=== PATIENT | female | born 1945 | race Caucasian/White ===

== ENCOUNTER 2016-12-29 09:00 | Outpatient (RCR) | payer MEDICARE, OTHER ==
[~2016-12-29 09:00] MED LIST: ASPIR-LOW81 MG PO; CIPROFLOXACIN500 M2 ORAL; CLOTRIMAZOLE15 GM TOPIC; FISH OIL 1,0001 EAC1 ORAL; FLEET ENEMA133 ML RC; IBUPROFEN600 M1 PO; LEVOFLOXACIN750 MG ORAL; METRONIDAZOLE250 MG ORAL; METRONIDAZOLE500 MG ORAL; MILK OF MA400 MG/51 ORAL; NEOMYCIN-POLY-7.5 M1 OP; NEXIUM40 M2 ORAL; NEXIUM40 MG ORAL; NORCO 5-325 TA1 EACH ORAL; NORCO 5-325 TA1 EACH PO; NORVASC5 MG ORAL; OSCAL D500 MG PO; OYSCO 500+D TA1 EAC1 PO; PROBIOTIC1 EAC6 PO; ROBAXIN500 MG PO; SOMA350 MG PO; SYNTHROID50 MCG PO; TRAMADOL HCL50 MG ORAL; ZYRTEC10 MG ORAL; [UNRECOGNIZED DRUG - MIXTURE] PO
== END 2017-01-25 | disposition home or self-care (01) ==
LOC: PTY 09:00
DX: M54.5 Low back pain (principal); M48.06 Spinal stenosis, lumbar region; S83.231D Complex tear of medial meniscus, current injury, right knee, subsequent encounter; I10 Essential (primary) hypertension; E78.00 Pure hypercholesterolemia, unspecified; E03.9 Hypothyroidism, unspecified; E66.9 Obesity, unspecified; F32.9 Major depressive disorder, single episode, unspecified; M19.90 Unspecified osteoarthritis, unspecified site; N28.9 Disorder of kidney and ureter, unspecified; Z90.5 Acquired absence of kidney
CPT/HCPCS: 97110; 97140; 97161; G0283; G8978; G8979

== ENCOUNTER 2017-01-27 08:00 | Outpatient (RCR) | payer MEDICARE, OTHER ==
[2017-01-30] MEDS ORDERED: TRAMADOL HCL50 MG ORAL (11:30)
== END 2017-02-24 | disposition home or self-care (01) ==
LOC: PTY 08:00
DX: M48.06 Spinal stenosis, lumbar region (principal); M54.5 Low back pain; S83.231D Complex tear of medial meniscus, current injury, right knee, subsequent encounter; I10 Essential (primary) hypertension; E78.00 Pure hypercholesterolemia, unspecified; E03.9 Hypothyroidism, unspecified; E66.9 Obesity, unspecified; F32.9 Major depressive disorder, single episode, unspecified; M19.90 Unspecified osteoarthritis, unspecified site; N28.9 Disorder of kidney and ureter, unspecified; Z90.5 Acquired absence of kidney
CPT/HCPCS: 97110; 97140; G0283; G8979; G8980

== ENCOUNTER 2017-01-30 07:51 | Emergency (ER) | payer MEDICARE, OTHER ==
[~2017-01-30] VITALS: Ht 160 cm; Wt 75.3 kg
[2017-01-30] MEDS ORDERED: Tylenol #3 tab (300mg/30mg) ORAL ONE (08:30)
--- NOTE | 2017-01-30 11:23 | Diagnostic Imaging Report ---
Indication: Pain Comparison: None Findings: 4 view right rib series performed. Bones are osteopenic in keeping with age. There is no fracture identified. The right lung appears clear. There is no pneumothorax. No effusion seen. Surgical clips noted in the upper abdomen. Impression: Negative right rib series.
[2017-01-30] MEDS ORDERED: TRAMADOL HCL50 MG ORAL (11:30)
[2017-01-30 11:35] VITALS: BP 138/79
--- NOTE | 2017-01-30 12:34 | Emergency Room Report ---
History of Present Illness General Chief Complaint: Back Pain-No Injury Source: Patient Present Illness HPI 71-year-old female presents to ED stating of right-sided rib pain and upper back pain. States that approximately 3 weeks ago she had a mechanical trip and fall. Persistent pain to the right side of her ribs and upper back since. Pain is sharp, 9/10, nonradiating. Denies chest pain or shortness of breath. Denies any lower back pain. Denies any other injuries. No other aggravating or leading factors. Denies any other associated symptoms Allergies: Coded Allergies: PINEAPPLE (Verified Allergy, Mild, Itching, 08/29/14) taken from the patient Patient History Past Medical History: HTN Past Surgical History: none Pertinent Family History: none Social History: Denies: alcohol use, drug use, smoking Last Menstrual Period: na Now: No Immunizations: UTD Reviewed Nursing Documentation: PMH: Agreed, PSxH: Agreed Nursing Documentation-PMH Past Medical History: No History, Except For Hx Cardiac Problems: Yes Hx Hypertension: Yes Hx Pacemaker: No - HYPOTHYROIDSM Hx Cancer: Yes - no rt kidney Hx Gastrointestinal Problems: Yes Hx Neurological Problems: No Review of Systems All Other Systems: negative except mentioned in HPI Physical Exam Vital Signs Date Time Temp Pulse Resp B/P Pulse Ox O2 Delivery O2 Flow Rate FiO2 01/30/17 08:03 97.5 68 18 138/79 98 Room Air Sp02 EP Interpretation: reviewed, normal General Appearance: no apparent distress, alert, GCS 15, non-toxic Head: normocephalic Eyes: bilateral eye PERRL, bilateral eye normal inspection ENT: normal ENT inspection Neck: normal inspection Respiratory: lungs clear, normal breath sounds, speaking full sentences, other - R sided reproducible rib pain Cardiovascular #1: regular rate, rhythm, no edema Gastrointestinal: normal bowel sounds, non tender, soft, non-distended, no guarding, no rebound Rectal: deferred Genitourinary: no CVA tenderness Musculoskeletal: normal inspection Neurologic: alert, oriented x3, responsive, motor strength/tone normal, sensory intact, speech normal Psychiatric: normal inspection Skin: normal inspection Lymphatic: normal inspection Medical Decision Making Diagnostic Impression: Primary Impression: Contusion of rib Qualified Codes: S20.211A - Contusion of right front wall of thorax, initial encounter Additional Impression: Muscle strain ER Course Hospital Course 71-year-old M presents to ED complaining of R Rib pain s/p fall Differential diagnoses include: Fracture, dislocation, sprain, contusion Clinical course Patient placed on stretcher. After initial history and physical, I ordered pain medications and Xrays of chest, R rib series Xrays read shows no acute fracture/dislocation. no PTX On reassessment pain is improved Diagnosis - rib contusion, muscle strain Stable and discharged to home with prescription for tramadol. apply ice. Followup with PMD. Return to ED if symptoms recur or worsen Chest X-Ray Diagnostic Results EP Interpretation: No Findings: no consolidation, no effusion, no pneumothorax, no acute cardiopulmonary disease Number of Views: 1 Other X-Ray Diagnostic Results Other X-Ray Diagnostic Results : X-Ray Ordered: R rib series EP Interpretation: No Findings: no fractures, no dislocation, no soft tissue swelling, other - surgical clips Number of Views: 3 Last Vital Signs Date Time Temp Pulse Resp B/P Pulse Ox O2 Delivery O2 Flow Rate FiO2 01/30/17 11:35 97.6 18 138/79 98 Room Air 01/30/17 08:03 68 Status: improved Disposition: HOME, SELF-CARE Condition: Stable Scripts Tramadol Hcl* (ULTRAM*) 50 Mg Tablet 50 MG ORAL Q6H Y for For Pain, #30 TAB 0 Refills Prov: ANGELITA MONTENEGRO M.D. 01/30/17 Patient Instructions: Back Pain, Adult ANGELITA MONTENEGRO M.D. Jan 30, 2017 12:34
== END 2017-01-30 11:35 | disposition home or self-care (01) ==
LOC: EMR 08:33
DX: S20.211A Contusion of right front wall of thorax, initial encounter (principal); T14.8 Other injury of unspecified body region; Z91.018 Allergy to other foods; I10 Essential (primary) hypertension; E03.9 Hypothyroidism, unspecified; W01.0XXA Fall on same level from slipping, tripping and stumbling without subsequent striking against object, initial encounter; Y92.9 Unspecified place or not applicable
CPT/HCPCS: 99284

== ENCOUNTER 2017-03-06 10:08 | Emergency (ER) | payer MEDICARE, OTHER ==
[~2017-03-06] VITALS: Ht 160 cm; Wt 87.1 kg
[2017-03-06 10:15] VITALS: BP 134/83
--- NOTE | 2017-03-06 10:20 | Emergency Room Report ---
History of Present Illness General Chief Complaint: Earache Source: Patient, Medical Record Present Illness HPI L ear pain several days. Redness. Pain with touch. Also pain behind ear. Has had before, but not this severe. No change hearing. No fevers. Concern over one kidney with meds. No NVD, dysuria, URI sy, sore throat, cough, CP. Allergies: Coded Allergies: PINEAPPLE (Verified Allergy, Mild, Itching, 08/29/14) taken from the patient Patient History Past Medical History: see triage record Pertinent Family History: other - R nephrectomy Social History: Denies: smoking Social History Narrative home Reviewed Nursing Documentation: PMH: Agreed, PSxH: Agreed Nursing Documentation-PMH Past Medical History: No History, Except For Hx Cardiac Problems: Yes Hx Hypertension: Yes Hx Pacemaker: No - HYPOTHYROIDSM Hx Cancer: Yes - Right kidney removal d/t CA Hx Gastrointestinal Problems: Yes Hx Neurological Problems: No Review of Systems All Other Systems: negative except mentioned in HPI Physical Exam Vital Signs Date Time Temp Pulse Resp B/P Pulse Ox O2 Delivery O2 Flow Rate FiO2 03/06/17 10:12 98.1 83 16 134/83 96 Room Air Sp02 EP Interpretation: reviewed, normal General Appearance: well appearing, no apparent distress Head: normocephalic, atraumatic Eyes: bilateral eye PERRL, bilateral eye normal inspection ENT: hearing grossly normal, normal voice, other - canal swollen L with erythema, TM normal - some mastoid tenderness Neck: full range of motion, supple Respiratory: no respiratory distress, speaking full sentences Musculoskeletal: no calf tenderness Neurologic: alert, normal gait Psychiatric: mood/affect normal Skin: no rash Medical Decision Making Diagnostic Impression: Primary Impression: Left otitis externa Qualified Codes: H60.312 - Diffuse otitis externa, left ear ER Course Pt presents with findings of otitis externa. Concern over 1 kidney. Exam remarkable and needing po antibiotics and analgesia. No sig co-morbidities and not toxic. Cipro and tylenol given. Improved. Patient stable for outpatient observation and treatment. Last Vital Signs Date Time Temp Pulse Resp B/P Pulse Ox O2 Delivery O2 Flow Rate FiO2 03/06/17 10:30 98.1 16 134/83 96 Room Air 03/06/17 10:12 83 Status: improved Disposition: HOME, SELF-CARE Condition: Improved Scripts Acetaminophen (Tylenol) 325 Mg Tablet 650 MG ORAL Q6H Y for Prn Pain/Headache/Temp > 101, #30 TAB 0 Refills Prov: Abdias Key M.D. 03/06/17 Tramadol Hcl* (ULTRAM*) 50 Mg Tablet 50 MG ORAL Q6H Y for For Pain, #10 TAB 0 Refills Prov: Abdias Key M.D. 03/06/17 Ciprofloxacin Hcl* (CIPROFLOXACIN HCL*) 500 Mg Tablet 500 MG ORAL Q12H, #14 TAB 0 Refills Prov: Abdias Key M.D. 03/06/17 Ciprofloxacin/Hydrocortisone (CIPRO HC OTIC SUSPENSION) 10 Ml Drops.susp 3 DROP OT Q6HR for 7 Days, ML Prov: Abdias Key M.D. 03/06/17 Abidas Key M.D. Mar 06, 2017 10:20
[2017-03-06] MEDS ORDERED: TRAMADOL HCL50 MG ORAL (10:25)
[2017-03-06] MEDS ORDERED: CIPRO HC OTIC S10 M1 OT (10:25)
[2017-03-06] MEDS ORDERED: TYLENOL325 MG ORAL (10:25)
[2017-03-06] MEDS ORDERED: CIPROFLOXACIN500 M2 ORAL (10:25)
[2017-03-06 10:30] VITALS: BP 134/83
[2017-03-06] MEDS ORDERED: Ciprofloxacin 500mg tab ORAL ONE (10:30)
== END 2017-03-06 10:36 | disposition home or self-care (01) ==
LOC: EMR 10:30
DX: H60.92 Unspecified otitis externa, left ear (principal); I10 Essential (primary) hypertension; E03.9 Hypothyroidism, unspecified; Z85.528 Personal history of other malignant neoplasm of kidney; Z91.018 Allergy to other foods
CPT/HCPCS: 99284

== ENCOUNTER 2017-09-04 11:00 | Outpatient (RCR) | payer MEDICARE, OTHER ==
[~2017-09-04 11:00] MED LIST changes: +CIPRO HC OTIC S10 M1 OT; +TYLENOL325 MG ORAL
== END 2017-09-27 | disposition home or self-care (01) ==
LOC: PTY 11:00
DX: M54.5 Low back pain (principal); M48.00 Spinal stenosis, site unspecified
CPT/HCPCS: 97110; 97140; 97162; G0283; G8978; G8979

== ENCOUNTER 2017-09-29 08:00 | Outpatient (RCR) | payer MEDICARE, MEDICAID ==
[2017-10-13] MEDS ORDERED: PROMETHAZINE-C118 M1 ORAL (10:53)
== END 2017-10-25 | disposition home or self-care (01) ==
LOC: PTY 08:00
DX: M54.5 Low back pain (principal); M48.00 Spinal stenosis, site unspecified
CPT/HCPCS: 97110; G0283

== ENCOUNTER 2017-10-13 10:05 | Emergency (ER) | payer MEDICARE, MEDICAID ==
[~2017-10-13] VITALS: Ht 160 cm; Wt 77.1 kg
[2017-10-13 10:15] VITALS: BP 125/71
[2017-10-13] MEDS ORDERED: PROMETHAZINE-C118 M1 ORAL (10:53)
[2017-10-13 10:55] VITALS: BP 125/71
--- NOTE | 2017-10-13 11:06 | Diagnostic Imaging Report ---
Indication: Cough, shortness of breath Technique: One view of the chest Comparison: 11/03/2015 Findings: Lungs and pleural spaces are clear. Heart size is normal Impression: No acute process
--- NOTE | 2017-10-15 08:01 | Emergency Room Report ---
History of Present Illness General Chief Complaint: Upper Respiratory Illness Source: Patient, Medical Record Present Illness HPI Patient is 72-year-old female who presented after increased sore throat and cough for the past one week. Patient reports having increased nonproductive cough. She had recently been seen by her primary care physician and prescribed cough medications. She denied any vomiting. She denied any fever. Patient states that she had some nasal congestion. She reports having prior nephrectomy. Allergies: Coded Allergies: PINEAPPLE (Verified Allergy, Mild, Itching, 08/29/14) taken from the patient Patient History Past Medical History: see triage record Reviewed Nursing Documentation: PMH: Agreed, PSxH: Agreed Nursing Documentation-PMH Past Medical History: No History, Except For Hx Cardiac Problems: Yes Hx Hypertension: Yes Hx Pacemaker: No - HYPOTHYROIDSM Hx Cancer: Yes - Right kidney removal d/t CA Hx Gastrointestinal Problems: Yes Hx Neurological Problems: No Review of Systems All Other Systems: negative except mentioned in HPI Physical Exam Vital Signs Date Time Temp Pulse Resp B/P (MAP) Pulse Ox O2 Delivery O2 Flow Rate FiO2 10/13/17 10:08 98.4 89 18 121/67 98 Room Air 98.4 General Appearance: well appearing, no apparent distress, alert, GCS 15 Head: normocephalic, atraumatic ENT: hearing grossly normal, normal voice Neck: full range of motion, supple Respiratory: lungs clear, normal breath sounds, no respiratory distress, speaking full sentences Cardiovascular #1: normal peripheral pulses, regular rate, rhythm, no edema Musculoskeletal: no calf tenderness Neurologic: normal gait Psychiatric: mood/affect normal Skin: no rash Medical Decision Making Diagnostic Impression: Primary Impression: Upper respiratory symptom ER Course Patient presented for cough. Differential diagnosis included but was not limited to bronchitis, pneumonia, pulmonary embolism, pericarditis, asthma, foreign body. Patient has a benign exam and does not appear to require any laboratory testing at this time. The patient was given prescription for cough syrup. Chest Xray interpreted by me 1 view showed no evident infiltrate, normal mediastinum, and normal cardiac size.The patient is advised to follow up with primary care doctor in 1-2 days. Patient is advised to return if any worsening condition or if any changes in status that are concerning. This report is dictated with [employer] fabric worker supervisor software which may occasionally lead to discrepancies related to use of this software. Last Vital Signs Date Time Temp Pulse Resp B/P (MAP) Pulse Ox O2 Delivery O2 Flow Rate FiO2 10/13/17 10:55 98.1 86 18 125/71 98 Room Air 98.1 Status: improved Disposition: HOME, SELF-CARE Condition: Stable Scripts Codeine/Promethazine Hcl* (PROMETHAZINE-CODEINE SYRUP*) 118 Ml Syrup 2.5 ML ORAL Q4H Y for For Cough, #100 ML 0 Refills Prov: Hira Ramirez 10/13/17 Referrals: NOT CHOSEN [facility]/,REFERRING (PCP) Patient Instructions: Acute Bronchitis Hira Ramirez Oct 15, 2017 08:01
== END 2017-10-13 10:55 | disposition home or self-care (01) ==
LOC: EMR 10:40
DX: J06.9 Acute upper respiratory infection, unspecified (principal); I10 Essential (primary) hypertension; E03.9 Hypothyroidism, unspecified; Z90.5 Acquired absence of kidney; Z91.018 Allergy to other foods
CPT/HCPCS: 71045; 99283

== ENCOUNTER 2018-01-08 08:01 | Emergency (ER) | payer MEDICARE, MEDICAID ==
[~2018-01-08] VITALS: Ht 165.1 cm; Wt 88.5 kg
[~2018-01-08 08:01] MED LIST changes: +PROMETHAZINE-C118 M1 ORAL
[2018-01-08 08:22] VITALS: BP 146/101
[2018-01-08] MEDS ORDERED: Ketorolac 30mg Inj IV ONE (08:30)
--- NOTE | 2018-01-08 08:33 | Emergency Room Report ---
History of Present Illness General Chief Complaint: Pain Source: Patient Present Illness HPI The patient presents with one week of right upper back pain. She feels the muscle is tight. She tried taking tramadol. This led to her being constipated for a few days. It also makes her somewhat dizzy. She denies any cough, nausea , vomiting, diarrhea. She has some frequency. She denies diabetes. She denies dysuria. The pain radiates somewhat to her side. This positional and pleuritic. She rates the pain 10/10, burning and constant but worse with movement. No h/o blood clots, calf pain, edema. No cardiac disease. The pain is not exertional and R sided. She is limited in what she can take because she only has 1 kidney. Allergies: Coded Allergies: PINEAPPLE (Verified Allergy, Mild, Itching, 08/29/14) taken from the patient Patient History Past Medical History: see triage record, other - one kidney Past Surgical History: , other - R nephrectomy with h/o CA, foot surgery Social History: Denies: smoking, alcohol use, drug use Social History Narrative not working Now: No Reviewed Nursing Documentation: PMH: Agreed; PSxH: Agreed Nursing Documentation-PMH Past Medical History: No History, Except For Hx Cardiac Problems: Yes Hx Hypertension: Yes Hx Pacemaker: No - HYPOTHYROIDSM Hx Cancer: Yes - Right kidney removal d/t CA Hx Gastrointestinal Problems: Yes Hx Neurological Problems: No Review of Systems All Other Systems: negative except mentioned in HPI Physical Exam Vital Signs Date Time Temp Pulse Resp B/P (MAP) Pulse Ox O2 Delivery O2 Flow Rate FiO2 01/08/18 08:06 98.2 73 24 146/101 97 Room Air 98.2 Sp02 EP Interpretation: reviewed, normal General Appearance: well appearing, no apparent distress, GCS 15 Head: normocephalic Eyes: bilateral eye normal inspection ENT: moist mucus membranes Neck: supple Respiratory: lungs clear, normal breath sounds, other - R trapezius area pain with muscle spasm Cardiovascular #1: regular rate, rhythm Cardiovascular #2: 2+ radial (R) Gastrointestinal: normal inspection, normal bowel sounds, non tender, no mass, non-distended Genitourinary: no CVA tenderness Musculoskeletal: back normal - see chest, gait/station normal, normal range of motion Neurologic: alert, oriented x3, grossly normal Psychiatric: mood/affect normal Skin: normal inspection, warm/dry Medical Decision Making Diagnostic Impression: Primary Impression: Back pain Qualified Codes: M54.6 - Pain in thoracic spine Additional Impressions: Muscle spasm Renal insufficiency ER Course Patient presents with right upper back and chest pain. This been going for a week. She denies any fevers or cough. Differential includes muscle spasm, pleurisy, pulmonary embolus, acute myocardial infarction, pyelonephritis amongst others. Exam and history against PE. She'll be evaluated with EKG, chest x-ray and labs including urinalysis. She'll be treated with gentle IV hydration, Tylenol and Toradol. EKG no injury. CXR clear. Labs with renal insufficiency (has been this high in past). Improved with treatment. Patient stable for outpatient observation and treatment. Laboratory Tests Test 01/08/18 08:15 01/08/18 08:30 Urine Color Pale yellow Urine Appearance Clear Urine pH 6.5 (4.5-8.0) Urine Specific [place] 1.005 (1.005-1.035) Urine Protein 2+ (NEGATIVE) H Urine Glucose (UA) Negative (NEGATIVE) Urine Ketones Negative (NEGATIVE) Urine Occult Blood Negative (NEGATIVE) Urine Nitrite Negative (NEGATIVE) Urine Bilirubin Negative (NEGATIVE) Urine Urobilinogen Normal MG/DL (0.0-1.0) Urine Leukocyte Esterase Negative (NEGATIVE) Urine RBC 0-2 /HPF (0 - 2) Urine WBC 0-2 /HPF (0 - 2) Urine Squamous Epithelial Cells Occasional /LPF Urine Bacteria Occasional /HPF (NONE) Urine Hyaline Casts 0-2 /LPF (NONE) H White Blood Count 6.8 K/UL (4.8-10.8) Red Blood Count 4.93 M/UL (4.20-5.40) Hemoglobin 14.9 G/DL (12.0-16.0) Hematocrit 44.3 % (37.0-47.0) Mean Corpuscular Volume 90 FL (80-99) Mean Corpuscular Hemoglobin 30.1 PG (27.0-31.0) Mean Corpuscular Hemoglobin Concent 33.6 G/DL (32.0-36.0) Red Cell Distribution Width 11.7 % (11.6-14.8) Platelet Count 247 K/UL (150-450) Mean Platelet Volume 7.8 FL (6.5-10.1) Neutrophils (%) (Auto) 46.5 % (45.0-75.0) Lymphocytes (%) (Auto) 45.3 % (20.0-45.0) H Monocytes (%) (Auto) 5.7 % (1.0-10.0) Eosinophils (%) (Auto) 1.4 % (0.0-3.0) Basophils (%) (Auto) 1.1 % (0.0-2.0) Prothrombin Time 9.1 SEC (9.30-11.50) L Prothrombin Time INR 0.9 (0.9-1.1) PTT 25 SEC (23-33) Sodium Level 137 MMOL/L (136-145) Potassium Level 4.1 MMOL/L (3.5-5.1) Chloride Level 103 MMOL/L (98-107) Carbon Dioxide Level 22 MMOL/L (21-32) Anion Gap 12 mmol/L (5-15) Blood Urea Nitrogen 23 mg/dL (7-18) H Creatinine 1.4 MG/DL (0.55-1.30) H Estimate Glomerular Filtration Rate mL/min (>60) Glucose Level 122 MG/DL (74-106) H Calcium Level 9.2 MG/DL (8.5-10.1) Total Bilirubin 0.4 MG/DL (0.2-1.0) Aspartate Amino Transferase (AST) 29 U/L (15-37) Alanine Aminotransferase (ALT) 40 U/L (12-78) Alkaline Phosphatase 55 U/L (46-116) Total Creatine Kinase 368 U/L (26-308) H Troponin I 0.001 ng/mL (0.000-0.056) Pro-B-Type Natriuretic Peptide 228 pg/mL (0-125) H Total Protein 9.0 G/DL (6.4-8.2) H Albumin 4.0 G/DL (3.4-5.0) Globulin 5.0 g/dL Albumin/Globulin Ratio 0.8 (1.0-2.7) L EKG Diagnostic Results Rate: normal Rhythm: NSR Rhythm Strip Diag. Results EP Interpretation: yes Rhythm: NSR, no PVC's, no ectopy Chest X-Ray Diagnostic Results Chest X-Ray Diagnostic Results : Chest X-Ray Ordered: Yes # of Views/Limited/Complete: 1 View Indication: Other EP Interpretation: Yes Interpretation: no consolidation, no effusion, no pneumothorax Impression: No acute disease Electronically Signed by: Electronically signed by Abdias Key MD Last Vital Signs Date Time Temp Pulse Resp B/P (MAP) Pulse Ox O2 Delivery O2 Flow Rate FiO2 01/08/18 10:03 98.3 17 156/90 98 Room Air 98.3 01/08/18 08:06 73 Status: improved Disposition: HOME, SELF-CARE Condition: Improved Scripts Lactulose (LACTULOSE*) 20 Gm/30 Ml Solution 30 ML ORAL BID PRN for Constipation, #240 ML 0 Refills Prov: Abdias Key M.D. 01/08/18 Methocarbamol* (ROBAXIN*) 500 Mg Tablet 500 MG PO TID, #10 TAB 0 Refills Prov: Abdias Key M.D. 01/08/18 Hydrocodone Bit/Acetaminophen 5-325* (NORCO 5-325*) 1 Each Tablet 1 TAB ORAL Q6H PRN for For Pain, #10 TAB 0 Refills Prov: Abdias Key M.D. 01/08/18 Abdias Key M.D. January 08, 2018 08:32
[2018-01-08 08:49] LABS: BASOPHILS % (AUTO) 1.1 % (0.0-2.0); EOSINOPHILS % (AUTO) 1.4 % (0.0-3.0); HEMATOCRIT 44.3 % (37.0-47.0); HEMOGLOBIN 14.9 G/DL (12.0-16.0); LYMPHOCYTES % (AUTO) 45.3 % (20.0-45.0); MEAN CORPUSCULAR VOLUME 90 FL (80-99); MONOCYTES % (AUTO) 5.7 % (1.0-10.0); NEUTROPHILS % (AUTO) 46.5 % (45.0-75.0); PLATELET COUNT 247 K/UL (150-450); RED BLOOD COUNT 4.93 M/UL (4.20-5.40); RED CELL DISTRIBUTION WIDTH 11.7 % (11.6-14.8); WHITE BLOOD COUNT 6.8 K/UL (4.8-10.8)
[2018-01-08 08:58] LABS: ANION GAP 12 mmol/L (5-15); BLOOD UREA NITROGEN 23 mg/dL (7-18); CALCIUM 9.2 MG/DL (8.5-10.1); CARBON DIOXIDE 22 MMOL/L (21-32); CHLORIDE 103 MMOL/L (98-107); CREATININE 1.4 MG/DL (0.55-1.30); POTASSIUM 4.1 MMOL/L (3.5-5.1); SODIUM 137 MMOL/L (136-145)
[2018-01-08 09:03] LABS: INR 0.9 (0.9-1.1)
[2018-01-08 09:08] LABS: ALANINE AMINOTRANSFERASE 40 U/L (12-78); ALBUMIN/GLOBULIN RATIO 0.8 (1.0-2.7); ALKALINE PHOSPHATASE 55 U/L (46-116); ASPARTATE AMINO TRANSFERASE 29 U/L (15-37); BILIRUBIN,TOTAL 0.4 MG/DL (0.2-1.0); CREATINE KINASE 368 U/L (26-308)
[2018-01-08 09:19] LABS: APPEARANCE,URINE CLEAR; BILIRUBIN, URINE NEGATIVE (NEGATIVE); COLOR,URINE PALE YELLOW; GLUCOSE, URINE (UA) NEGATIVE (NEGATIVE); KETONES,URINE NEGATIVE (NEGATIVE); LEUKOCYTE ESTERASE ,URINE NEGATIVE (NEGATIVE); NITRITE,URINE NEGATIVE (NEGATIVE); PH,URINE 6.5 (4.5-8.0); PROTEIN,URINE 2+ (NEGATIVE); UROBILINOGEN,URINE NORMAL MG/DL (0.0-1.0)
[2018-01-08 09:22] VITALS: BP 165/87
[2018-01-08] MEDS ORDERED: ROBAXIN500 MG PO (09:55)
[2018-01-08] MEDS ORDERED: NORCO 5-325 TA1 EACH ORAL (09:55)
[2018-01-08] MEDS ORDERED: LACTULOSE20 GM/301 ORAL (09:55)
[2018-01-08 10:03] VITALS: BP 156/90
--- NOTE | 2018-01-08 10:35 | Diagnostic Imaging Report ---
Indication: Chest pain Technique: XRAY Chest 1v Comparison: 10/13/2017 Findings: Low lung volumes exaggerate heart size and vascular markings. A degree of pulmonary vascular congestion/fluid overload not entirely excluded. No definite focal airspace consolidation, pleural effusion or pneumothorax. Degenerative changes of the spine. No acute osseous abnormality seen. IMPRESSION: Low lung volumes exaggerate heart size and vascular markings. A degree of pulmonary vascular congestion/fluid overload not excluded. No focal consolidation.
--- NOTE | 2018-01-09 14:38 | Cardiology Report ---
APPROVED REPORT EKG Measurement Heart [id number] AR [id number] [id number] Normal sinus rhythm Minimal voltage criteria for LVH, may be normal variant Nonspecific T wave abnormality Abnormal ECG
== END 2018-01-08 10:09 | disposition home or self-care (01) ==
LOC: EMR 08:47
DX: M54.9 Dorsalgia, unspecified (principal); M62.838 Other muscle spasm; N28.9 Disorder of kidney and ureter, unspecified; Z91.018 Allergy to other foods; Z85.528 Personal history of other malignant neoplasm of kidney; I10 Essential (primary) hypertension; E03.9 Hypothyroidism, unspecified; Z90.5 Acquired absence of kidney
CPT/HCPCS: 36415; 71045; 80053; 81003; 82550; 83880; 84484; 85025; 85610; 85730; 93005; 96374; 96375; 99284; J1885

== ENCOUNTER 2019-02-18 13:47 | Outpatient (CLI) | payer MEDICARE, OTHER ==
[~2019-02-18 13:47] MED LIST changes: +LACTULOSE20 GM/301 ORAL
[2019-02-18 15:32] VITALS: BP 130/71
--- NOTE | 2019-02-21 01:30 | Consultation ---
DATE OF CONSULTATION: 02/18/2019 GASTROENTEROLOGY CONSULTATION CHIEF COMPLAINT: Constipation. PAST MEDICAL HISTORY: 1. Known gastritis. 2. Depression. 3. Diverticulosis. 4. Hypercholesterolemia. 5. Hypothyroidism. 6. Hemorrhoids. 7. Hypertension. MEDICATIONS: Please see medication reconciliation list. ALLERGIES: No known drug allergies. SOCIAL HISTORY: The patient denies any tobacco, alcohol, or IV drug abuse. FAMILY HISTORY: No family history of GI malignancies. REVIEW OF SYSTEMS: A 10-point review of systems was performed and positive for constipation. PHYSICAL EXAMINATION: VITAL SIGNS: Temperature 98.4, blood pressure is 130/71, pulse 64, and respirations 20. HEENT: Normocephalic and atraumatic. Sclerae anicteric. NECK: Supple. No evidence of obvious lymphadenopathy. CARDIOVASCULAR: Regular rhythm. Plus S1 and S2. No obvious murmur. LUNGS: Clear to auscultation bilaterally. ABDOMEN: Positive bowel sounds. Soft and nontender. No rebound. No guarding. No peritoneal sign. EXTREMITIES: No cyanosis. No clubbing. No edema. ASSESSMENT AND PLAN: This is a 73-year-old female with constipation. Last colonoscopy was done in May of 2015. The patient had poor prep in the cecum. Scattered left-sided diverticulosis and internal hemorrhoids. The patient apparently was supposed to get another colonoscopy in May of 2020. Today, we offered her to have another colonoscopy. She states she wants to wait until 2019. So, we are going to start her on Linzess 145 mcg p.o. daily before breakfast. The patient to come back if there is no response. The patient was also informed to come back to have a colonoscopy sooner if there is any rectal bleeding, significant weight loss, abdominal pain, or worsening of the constipation. Dilan Bell M.D. DR: MOY JOB#: [id number] CC:
== END 2019-02-18 15:47 | disposition home or self-care (01) ==
LOC: PAN 13:47
DX: K59.00 Constipation, unspecified (principal); F32.9 Major depressive disorder, single episode, unspecified; K57.90 Diverticulosis of intestine, part unspecified, without perforation or abscess without bleeding; E78.00 Pure hypercholesterolemia, unspecified; E03.9 Hypothyroidism, unspecified; I10 Essential (primary) hypertension
CPT/HCPCS: 99212

== ENCOUNTER 2019-03-04 09:38 | Emergency (ER) | payer MEDICARE, OTHER ==
[~2019-03-04] VITALS: Ht 160 cm; Wt 89.8 kg
[2019-03-04 09:55] VITALS: BP 140/96
--- NOTE | 2019-03-04 09:55 | NUR ---
ED Nurse Note: pt walked in due to lower back pain. pt stated the pain started 3 days ago when she lifted a heavy pot. pt able to walk. seen by darshan. will continue to monitor.
[2019-03-04] MEDS ORDERED: Methocarbamol 750mg tab ORAL ONE (10:00)
--- NOTE | 2019-03-04 10:10 | NUR ---
ED Nurse Note: pt medicated as orderd. pt able to tolerate medication
[2019-03-04] MEDS ORDERED: ROBAXIN-750750 MG PO (10:28)
[2019-03-04] MEDS ORDERED: LIDODERM700 M1 TOPIC (10:28)
[2019-03-04] MEDS ORDERED: TYLENOL EXTRA500 MG ORAL (10:28)
[2019-03-04 10:35] VITALS: BP 140/96
--- NOTE | 2019-03-04 10:35 | NUR ---
ER DISCHARGE NOTE: Patient is cleared to be discharged per ERMD, pt is aox4, on room air, with stable vital signs. pt was given dc and prescription instructions, pt was able to verbalize understanding, pt id band removed without complications. pt is able to ambulate with steady gait. pt took all belongings.
--- NOTE | 2019-03-04 11:35 | Emergency Room Report ---
History of Present Illness General Chief Complaint: Lower Back Pain or Injury Source: Patient Present Illness HPI 73-year-old female presents ED for evaluation. Patient complaining of lower back pain started a few days ago after lifting a heavy object. Pain is left- sided, 5 out of 10 radiating to mid back. Denies chest pain or shortness of breath. Denies flank pain. Denies any bowel or bladder incontinence. Denies any leg or motor weakness. No other aggravating relieving factors. Denies any other associated symptoms Allergies: Coded Allergies: PINEAPPLE (Verified Allergy, Mild, Itching, 08/29/14) taken from the patient Patient History Past Medical History: HTN Past Surgical History: other - nephrectomy Pertinent Family History: none Social History: Denies: smoking, alcohol use, drug use Now: No Immunizations: UTD Reviewed Nursing Documentation: PMH: Agreed; PSxH: Agreed Nursing Documentation-PMH Past Medical History: No History, Except For Hx Cardiac Problems: Yes Hx Hypertension: Yes Hx Pacemaker: No - HYPOTHYROIDSM Hx Cancer: Yes - Right kidney removal d/t CA Hx Gastrointestinal Problems: Yes Hx Neurological Problems: No Review of Systems All Other Systems: negative except mentioned in HPI Physical Exam Vital Signs Date Time Temp Pulse Resp B/P (MAP) Pulse Ox O2 Delivery O2 Flow Rate FiO2 03/04/19 09:41 97.0 67 18 140/96 (111) 98 Room Air Sp02 EP Interpretation: reviewed, normal General Appearance: no apparent distress, alert, GCS 15, non-toxic Head: normocephalic Eyes: bilateral eye normal inspection, bilateral eye PERRL ENT: hearing grossly normal Neck: normal inspection Respiratory: normal inspection Cardiovascular #1: normal inspection Gastrointestinal: normal inspection Rectal: deferred Genitourinary: no CVA tenderness, no vertebral tenderness Musculoskeletal: tender - paraspinal lumbar tenderness Neurologic: alert, oriented x3, responsive, motor strength/tone normal, sensory intact, speech normal Psychiatric: normal inspection Skin: rash Lymphatic: normal inspection Medical Decision Making Diagnostic Impression: Primary Impression: Back pain Qualified Codes: M54.5 - Low back pain ER Course Hospital Course 73-year-old female presents ED complaining of lower back pain. No evidence of trauma Differential diagnoses include: pyelonephritis, kidney stone, muscle strain, Lspine fracture Clinical course Patient placed on stretcher. After initial history, physical exam reveals elderly female in no acute distress. There is no deeper body tenderness. No flank pain. No bruising. There is paraspinal tenderness in the left. pain is muscular. No signs of trauma. Imaging not indicated at this time. Given Tylenol, Robaxin, Lidoderm. Safe for discharge with close outpatient follow-up. Dr. hernandez made aware Diagnosis - back pain Stable and discharged to home with prescription for tylenol, robaxin, lidoderm. Followup with PMD. Return to ED if symptoms recur or worsen Last Vital Signs Date Time Temp Pulse Resp B/P (MAP) Pulse Ox O2 Delivery O2 Flow Rate FiO2 03/04/19 10:35 97.0 76 18 140/96 98 Room Air Status: improved Disposition: HOME, SELF-CARE Condition: Stable Scripts Lidocaine (Lidoderm) 1 Each Adh..patch 1 PATCH TOPIC DAILY, #7 PATCH 0 Refills Patch(es) may remain in place for up to 12 hours in any 24-hour period. Prov: Lloyd Oneil MD 03/04/19 Methocarbamol* (ROBAXIN-750*) 750 Mg Tablet 750 MG PO TID, #21 TAB 0 Refills Prov: Lloyd Oneil MD 03/04/19 Acetaminophen* (TYLENOL EXTRA STRENGTH*) 500 Mg Tablet 500 MG ORAL Q8H PRN for Prn Headache/Temp > 101, #30 TAB 0 Refills Prov: Lloyd Oneil MD 03/04/19 Patient Instructions: Lumbosacral Strain Lloyd Oneil MD Mar 04, 2019 11:34
== END 2019-03-04 10:35 | disposition home or self-care (01) ==
LOC: EMR 10:20
DX: M54.5 Low back pain (principal); I10 Essential (primary) hypertension; E03.9 Hypothyroidism, unspecified; Z91.018 Allergy to other foods; Z90.5 Acquired absence of kidney
CPT/HCPCS: 99282

== ENCOUNTER 2020-04-27 14:03 | Outpatient (CLI) | payer MEDICARE, OTHER ==
[~2020-04-27 14:03] MED LIST changes: +LIDODERM700 M1 TOPIC; +ROBAXIN-750750 MG PO; +TYLENOL EXTRA500 MG ORAL
[2020-04-27 14:44] VITALS: BP 130/71
== END 2020-04-27 15:07 | disposition home or self-care (01) ==
LOC: PAN 14:03
DX: R10.9 Unspecified abdominal pain (principal)
CPT/HCPCS: 99212

== ENCOUNTER 2020-05-13 08:04 | Day surgery (SDC) | payer MEDICARE, OTHER ==
[2020-05-13] VITALS (8 sets, daily range): BP systolic 140–157; BP diastolic 76–91
[~2020-05-13] VITALS: Ht 154.9 cm; Wt 87.1 kg
--- NOTE | 2020-05-13 10:23 | Pre-Procedure Note/Attestation ---
Pre-Procedure Note/Attestation Complete Prior to Procedure Planned Procedure: not applicable Procedure Narrative: esophagogastroduodenoscopy and colonoscopy Indications for Procedure Pre-Operative Diagnosis: screening colon, GERD Attestation I attest that I discussed the nature of the procedure; its benefits; risks and complications; and alternatives (and the risks and benefits of such al ternatives), prior to the procedure, with the patient (or the patient's legal account executive sales representative). I attest that, if there was a reasonable possibility of needing a blood transfusion, the patient (or the patient's legal account executive sales representative) was given the [facility] standardized written summary, pursuant to the [place] Blood Safety Act ([place] Health and Safety Code # 1645, as amended). I attest that I re-evaluated the patient just prior to the surgery and that there has been no change in the patient's H&P, except as documented below: Dilan Bell MD May 13, 2020 10:23
--- NOTE | 2020-05-13 10:24 | Short Stay Surgery H&P ---
History of Present Illness History of Present Illness Chief Complaint see office consult note HPI Lia Sandoval is a 75 year old female who was admitted on for Abd Pain Patient History Allergies: Coded Allergies: PINEAPPLE (Verified Allergy, Mild, Itching, 08/29/14) taken from the patient Medication History Scheduled Amlodipine Besylate (Norvasc), 5 MG ORAL DAILY, (Reported) Aspirin* (Aspir-Low*), 81 MG PO DAILY, (Reported) Calcium Carbonate/Vitamin D3 ([place] 500+D Tablet), 1 EACH PO DAILY, (Reported) Esomeprazole Magnesium (Nexium), 40 MG ORAL DAILY, (Reported) Levothyroxine Sodium (Synthroid), 50 MCG PO DAILY, (Reported) [place]-3 Fatty Acids/Fish Oil* (Fish Oil 1,000 Mg Softgel*), 1 CAP ORAL DAILY, (Reported) Scheduled PRN Acetaminophen (Tylenol), 650 MG ORAL Q6H PRN for Prn Pain/Headache/Temp > 101 Hydrocodone Bit/Acetaminophen 5-325* ([place] 5-325*), 1 TAB ORAL Q6H PRN for For Pain Lactulose (Lactulose*), 30 ML ORAL BID PRN for Constipation Tramadol Hcl* (Ultram*), 50 MG ORAL Q6H PRN for For Pain Discontinued Medications Lidocaine Patch* (Lidoderm Patch*), 1 PATCH TOPIC DAILY Discontinued Reason: Pt stopped taking med Methocarbamol* (Robaxin*), 500 MG PO TID Discontinued Reason: Pt stopped taking med Methocarbamol* (Robaxin-750*), 750 MG PO TID Discontinued Reason: Pt stopped taking med Physical Exam Vital Signs Last Vital Signs Date Time Temp Pulse Resp B/P (MAP) Pulse Ox O2 Delivery O2 Flow Rate FiO2 05/13/20 09:14 Room Air 05/13/20 08:59 96.8 76 18 140/87 96 Plan Attestation Are the patient's medical conditions optimized for surgery? Dilan Bell MD May 13, 2020 10:24
[2020-05-13] MEDS ORDERED: LR 1000ml 1,000 ML IVLG SCH (10:30)
[2020-05-13] MEDS ORDERED: LR 1000ml ONE (11:00)
[2020-05-13] MEDS ORDERED: Lidocaine 1% MPF 10mg/ml 5ml ONE (11:00)
--- NOTE | 2020-05-13 11:18 | Endoscopy Procedure Note ---
Endoscopy Procedure Note General Indication for Procedure: screening colon, GERD Procedures Performed: colonoscopy Operative Findings/Diagnosis: gastritis, hemorrhoids Specimen: yes Pt Tolerated Procedure Well: Yes Estimated Blood Loss: none Anesthesia Anesthesiologist: eric Anesthesia: MAC Inserted Devices Implant(s) used?: No Quality Quality of Bowel Preparation: Good Did scope reach the cecum?: No Why scope didn't reach cecum: Therapeutic intervn only Was there any complications?: No GI Core Measures 50 yrs or older w/o bx or poly: No 10yrs. F/U recommended: Yes If not recommended, why?: Above average risk 18 years or older w/prev. colo: No Dilan Bell MD May 13, 2020 11:18
--- NOTE | 2020-05-13 11:28 | Immediate Post-Op Evaluation ---
Immediate Post-Op Evalulation Immediate Post-Op Evalulation Procedure: EGD/Colonoscopy Date of Evaluation: May 13, 2020 Time of Evaluation: 11:28 IV Fluids: 500 Blood Pressure Systolic: 144 Blood Pressure Diastolic: 70 Pulse Rate: 68 Respiratory Rate: 14 O2 Sat by Pulse Oximetry: 98 Temperature (Fahrenheit): 97.1 Nausea: No Vomiting: No Complications none Patient Status: awake, reacts, patent Hydration Status: adequate Drug: none Imani Hong CRNA May 13, 2020 11:28
--- NOTE | 2020-05-13 11:30 | Anethesia Preoperative Eval ---
Anesthesia Pre-op PMH/ROS General Date of Evaluation: May 13, 2020 Time of Evaluation: 10:50 Anesthesiologist: brayan ASA Score: ASA 3 Mallampati Score Class I : Soft palate, uvula, fauces, pillars visible Class II: Soft palate, uvula, fauces visible Class III: Soft palate, base of uvula visible Class IV: Only hard plate visible Mallampati Classification: Class II Surgeon: roosevelt Diagnosis: abd pain Surgical Procedure: EGD/Colonoscopy Anesthesia History: none Family History: no anesthesia problems Allergies: Coded Allergies: PINEAPPLE (Verified Allergy, Mild, Itching, 08/29/14) taken from the patient Medications: see eMAR Patient NPO?: Yes NPO Date: May 13, 2020 NPO Time: 00:01 Past Medical History Cardiovascular: Reports: HTN, CAD Pulmonary: Reports: MARIA INES Gastrointestinal/Genitourinary: Reports: GERD; Denies: CRI, ESRD, other Neurologic/Psychiatric: Denies: dementia, CVA, depression/anxiety, TIA, other Endocrine: Denies: DM, hypothyroidism, steroids, other HEENT: Denies: cataract (L), cataract (R), glaucoma, KAW (L), KAW (R), other Hematology/Immune: Denies: anemia, DVT, bleeding disorder, other Musculoskeletal/Integumentary: Denies: OA, RA, DJD, DDD, edema, other Other: obesity PSxH Narrative: see chart Anesthesia Pre-op Phys. Exam Physician Exam Last Vital Signs Date Time Temp Pulse Resp B/P (MAP) Pulse Ox O2 Delivery O2 Flow Rate FiO2 05/13/20 09:14 Room Air 05/13/20 08:59 96.8 76 18 140/87 96 Constitutional: NAD Neurologic: CN 2-12 intact Cardiovascular: RRR Respiratory: CTA Gastrointestinal: S/NT/ND Airway Exam Mallampati Classification 3 Mallampati Score: Class III MO: limited Neck: thick TMD: 1fb Dentures: no upper, no lower Anesthesia Pre-op A/P Studies Pre-op Studies: EKG - SR Risk Assessment & Plan Assessment: covid neg Plan: mac Status Change Before Surgery: No Pre-Antibiotics Drug: none Imani Hong CRNA May 13, 2020 11:30
--- NOTE | 2020-05-13 12:09 | 48 Hour Post Anesthesia Eval ---
Post Anesthesia Evaluation Procedure: EGD/Colonoscopy Date of Evaluation: May 13, 2020 Time of Evaluation: 12:09 Blood Pressure Systolic: 142 0: 81 Pulse Rate: 64 Respiratory Rate: 14 O2 Sat by Pulse Oximetry: 99 Airway: patent Nausea: No Vomiting: No Hydration Status: adequate Cardiopulmonary Status: stable Mental Status/LOC: patient returned to baseline Post-Anesthesia Complications: none Follow-up care needed: N/A Imani Hong CRNA May 13, 2020 12:09
--- NOTE | 2020-05-13 15:00 | Procedure Note ---
DATE OF PROCEDURE: 05/13/2020 SURGEON: Dilan Bell MD. PROCEDURE: Upper endoscopy with biopsy and colonoscopy. INDICATION: 1. Screening colonoscopy evaluation. 2. Chronic GERD. REASON FOR PROCEDURE: The procedure, risks, benefits, and possible consequences, including hemorrhage, aspiration, perforation and infection, and alternative treatments, were explained to the patient/legal guardian by Dr. Dilan Bell and the patient/legal guardian understood and accepted these risks. DESCRIPTION OF PROCEDURE: After informed consent was obtained and the patient was adequately sedated, Olympus upper endoscope was advanced from mouth into the second portion of the duodenum and retroflexion was performed in the stomach. The patient had evidence of diffuse gastritis. Random biopsy from antrum was obtained to rule out H. pylori infection. Otherwise, the rest of upper endoscopy examination grossly within normal limits. At this time, the upper endoscope was retrieved and the patient was turned over for colonoscopy. First, rectal exam was performed which was positive for internal hemorrhoids. Then, the scope was advanced from rectum into the ileocecal valve. We could not get completely into the cecum, but we were able to see the ileocecal valve. We even placed the patient on the back, on the side, abdominal pressures with 2 nurses but we could not get into the cecum. Quality of prep was good. The patient has no acute findings except for internal hemorrhoids which was seen on retroflexion. SUMMARY OF FINDINGS: 1. Gastritis, status post biopsy. 2. Examination of the colon up to the ileocecal valve. 3. Internal hemorrhoids. RECOMMENDATIONS: Followup biopsy results and treat accordingly. Dilan Bell M.D. DR: Bryan JOB#: [id number] CC:
== END 2020-05-13 12:35 | disposition home or self-care (01) ==
LOC: GAS 08:04
DX: Z12.11 Encounter for screening for malignant neoplasm of colon (principal); K29.50 Unspecified chronic gastritis without bleeding; K21.9 Gastro-esophageal reflux disease without esophagitis; K64.8 Other hemorrhoids; Z88.6 Allergy status to analgesic agent; Z79.899 Other long term (current) drug therapy; Z91.018 Allergy to other foods; I11.9 Hypertensive heart disease without heart failure; I25.10 Atherosclerotic heart disease of native coronary artery without angina pectoris; G47.33 Obstructive sleep apnea (adult) (pediatric); E66.9 Obesity, unspecified; Z68.36 Body mass index [BMI] 36.0-36.9, adult
CPT/HCPCS: 43239; 93005; 94003; G0121; J2704; J7120; U0002; 94150

== ENCOUNTER 2020-05-27 12:23 | Outpatient (CLI) | payer MEDICARE, OTHER ==
--- NOTE | 2020-05-27 13:54 | General Progress Note ---
Subjective ROS Limited/Unobtainable: Yes Allergies: Coded Allergies: PINEAPPLE (Verified Allergy, Mild, Itching, 08/29/14) taken from the patient Objective General Appearance: alert EENT: normal ENT inspection Neck: supple Cardiovascular: normal rate Respiratory/Chest: decreased breath sounds Abdomen: normal bowel sounds, non tender, soft Extremities: non-tender Assessment/Plan Assessment/Plan: Assessment/Plan Assessment/Plan: 1. Known gastritis. 2. Depression. 3. Diverticulosis. 4. Hypercholesterolemia. 5. Hypothyroidism. 6. Hemorrhoids. 7. Hypertension. 8. constipation s/p EGD and colonoscopy rob ruano RTC prn Dilan Bell MD May 27, 2020 13:54
== END 2020-05-27 14:23 | disposition home or self-care (01) ==
LOC: PAN 12:23
DX: K57.90 Diverticulosis of intestine, part unspecified, without perforation or abscess without bleeding (principal); K29.70 Gastritis, unspecified, without bleeding; F32.9 Major depressive disorder, single episode, unspecified; E78.00 Pure hypercholesterolemia, unspecified; E03.9 Hypothyroidism, unspecified; K64.9 Unspecified hemorrhoids; I10 Essential (primary) hypertension; K59.00 Constipation, unspecified; Z91.018 Allergy to other foods
CPT/HCPCS: 99212

== ENCOUNTER 2020-06-08 14:36 | Outpatient (CLI) | payer MEDICARE, OTHER ==
--- NOTE | 2020-06-08 15:09 | General Progress Note ---
Subjective ROS Limited/Unobtainable: Yes Allergies: Coded Allergies: PINEAPPLE (Verified Allergy, Mild, Itching, 08/29/14) taken from the patient Objective General Appearance: alert EENT: normal ENT inspection Neck: supple Cardiovascular: normal rate Respiratory/Chest: decreased breath sounds Abdomen: normal bowel sounds, non tender, soft Extremities: non-tender Assessment/Plan Assessment/Plan: Assessment/Plan Assessment/Plan: 1. Known gastritis. 2. Depression. 3. Diverticulosis. 4. Hypercholesterolemia. 5. Hypothyroidism. 6. Hemorrhoids. 7. Hypertension. 8. constipation s/p EGD and colonoscopy trilal of [place] RTC prn Dilan Bell MD Jun 08, 2020 15:09
== END 2020-06-08 16:36 | disposition home or self-care (01) ==
LOC: PAN 14:36
DX: K29.70 Gastritis, unspecified, without bleeding (principal); F32.9 Major depressive disorder, single episode, unspecified; K57.90 Diverticulosis of intestine, part unspecified, without perforation or abscess without bleeding; E78.00 Pure hypercholesterolemia, unspecified; E03.9 Hypothyroidism, unspecified; K64.9 Unspecified hemorrhoids; I10 Essential (primary) hypertension; K59.00 Constipation, unspecified; Z91.018 Allergy to other foods
CPT/HCPCS: 99212

== ENCOUNTER 2020-06-24 14:51 | Outpatient (CLI) | payer MEDICARE, OTHER ==
[2020-06-24 15:11] VITALS: BP 132/75
--- NOTE | 2020-06-24 15:35 | General Progress Note ---
Subjective ROS Limited/Unobtainable: Yes Allergies: Coded Allergies: PINEAPPLE (Verified Allergy, Mild, Itching, 08/29/14) taken from the patient Objective Last 24 Hour Vital Signs Date Time Temp Pulse Resp B/P (MAP) Pulse Ox O2 Delivery O2 Flow Rate FiO2 06/24/20 15:11 97.6 64 16 132/75 96 General Appearance: alert EENT: normal ENT inspection Neck: supple Cardiovascular: normal rate Respiratory/Chest: lungs clear Abdomen: normal bowel sounds, non tender, soft Extremities: non-tender Assessment/Plan Assessment/Plan: Assessment/Plan Assessment/Plan: 1. Known gastritis. 2. Depression. 3. Diverticulosis. 4. Hypercholesterolemia. 5. Hypothyroidism. 6. Hemorrhoids. 7. Hypertension. 8. constipation s/p EGD and colonoscopy trilal of [place] RTC prn Dilan Bell MD Jun 24, 2020 15:35
== END 2020-06-24 16:51 | disposition home or self-care (01) ==
LOC: PAN 14:51
DX: K29.70 Gastritis, unspecified, without bleeding (principal); F32.9 Major depressive disorder, single episode, unspecified; K57.90 Diverticulosis of intestine, part unspecified, without perforation or abscess without bleeding; E78.00 Pure hypercholesterolemia, unspecified; E03.9 Hypothyroidism, unspecified; K64.9 Unspecified hemorrhoids; I10 Essential (primary) hypertension; K59.00 Constipation, unspecified; Z91.018 Allergy to other foods
CPT/HCPCS: 99212